=== PATIENT | male | born 1995 | race Caucasian/White ===

== ENCOUNTER 2022-05-12 12:10 | Emergency (ER) | payer OTHER, SELFPAY ==
[2022-05-12 12:27] VITALS: BP 116/71; PULSE 78; RESP 16; TEMP 36.7; O2SAT 100
[2022-05-12] MEDS: methylPREDNISolone SOD SUCC 125 MG VIAL IM (12:45)
--- NOTE | 2022-05-12 13:01 | ED.SKABFB ---
HPI - Skin/Abscess/Foreign Bdy General Chief complaint: Skin/Abscess/Foreign Body Stated complaint: Rash Time Seen by Provider: 05/12/22 13:01 History of Present Illness HPI narrative: Julio Maradiaga is a 26 yo male with no PMH who comes with a rash over his whole body. He states that it started on Saturday have 1 little bite on his right forearm and when he woke up the next day his whole body was covered including his forehead. Currently taking valacyclovir for HSV Related Data Home Medications Medication Instructions Recorded Confirmed valacyclovir 1 gram tablet 1,000 mg PO Q12H 05/12/22 05/12/22 Allergies Allergy/AdvReac Type Severity Reaction Status Date / Time amoxicillin AdvReac Mild Nausea Verified 05/12/22 12:23 clavulanic acid AdvReac Mild Nausea Verified 05/12/22 12:23 Review of Systems Review of Systems: CONSTITUTIONAL: Denies fever, chills, sweats. EYES: Denies visual changes, redness, discharge. ENT: Denies rhinorrhea, congestion, sore throat, otalgia. CARDIOVASCULAR: Denies chest pain, palpitations, edema. RESPIRATORY: Denies dyspnea, wheezing, cough GASTROINTESTINAL: Denies abdominal pain, nausea, vomiting, diarrhea. GENITO rash all over body including face and torso after getting bit by something on Saturday NEUROLOGIC: Denies numbness, or focal weakness. PSYCHIATRIC: Denies anxiety or depression. PMFSH Past Medical History Medical History HSV-2 (herpes simplex virus 2) infection Social History Social History Smoking status: Never smoker Alcohol intake: current Comments At time of signature, I agree with nursing past medical, surgical, social and family history. There is no relevant family history pertinent to the presenting complaint. Exam Narrative: GENERAL: This is a well-nourished, well-developed patient, in mild distress. HEAD: normocephalic, atraumatic. EYES: . Sclera clear/white. Vision is grossly intact. EARS: External ears normal, Hearing grossly intact. NOSE: External nose normal without nasal discharge, nares without redness, no rhinorrhea. THROAT: Mucous membranes moist, NECK: Neck supple, CARDIOVASCULAR: Regular rate and rhythm without murmurs, gallops, or rubs. RESPIRATORY: Clear to auscultation. Breath sounds equal bilaterally. No wheezes, rales, or rhonchi. GASTROINTESTINAL not done, SKIN: warm, intact with red papular rash covers his torso, arms, face, genitals, between fingers NEURO: awake, alert, and oriented to person, place and time. There were no obvious focal neurologic abnormalities. Steady gait EXTREMITIES: Normal range of motion. BACK: Nontender without deformity Course Course Emergency Course: Patient has rash that started last Saturday he is unsure if it is from sleeping in different hotels as he moves back to the area from [place] or if is from weed eating a friend's yard. He is also on ongoing medication for HSV2 Patient given Solu-Medrol 125 here and started on a contact dermatitis protocol of prednisone, Pepcid, Benadryl but also given the name of the medication to buy that pharmacy. if this rash does not improve, related possible to his regular hotel usage, shovalerild treat with permetherin Level of Care: Express Care Visit Vital Signs Vital signs: Vital Signs Temperature 98.0 F 05/12/22 12:27 Pulse Rate 78 05/12/22 12:27 Respiratory Rate 16 05/12/22 12:27 Blood Pressure 116/71 05/12/22 12:27 Pulse Oximetry 100 05/12/22 12:27 Oxygen Delivery Room Air 05/12/22 12:27 Temperature 98.0 F 05/12/22 12:27 Pulse Rate 78 05/12/22 12:27 Respiratory Rate 16 05/12/22 12:27 Blood Pressure 116/71 05/12/22 12:27 Pulse Oximetry 100 05/12/22 12:27 Oxygen Delivery Room Air 05/12/22 12:27 MDM - Skin/Abscess/Foreign Bdy Differential Diagnosis Differential diagnosis: Likely urticaria, cellulitis, eczema, in
== END 2022-05-12 13:30 | disposition home or self-care (01) ==
PROVIDERS: Emergency Provider Nurse Practitioner
DX: L23.7 Allergic contact dermatitis due to plants, except food (principal); B00.9 Herpesviral infection, unspecified
CPT/HCPCS: 96372; 99213; G0463; J2930

== ENCOUNTER 2022-07-08 18:40 | Emergency (ER) | payer BC, SELFPAY ==
--- NOTE | ~2022-07-08 | XR_ITS ---
EXAM: XR pelvis 1-2V DATE: 07/08/2022 19:36 HISTORY: pelvic pain SINCE YESTERDAY, LEFT SIDE PAIN . COMPARISON: 05/10/2016. FINDINGS: Normal mineralization. No fracture or dislocation. No lytic or blastic lesion. Joint space s are maintained. No erosion or periosteal change. Soft tissues within normal limits. IMPRESSION: No acute osseous finding in the pelvis. Reviewed, dictated and finalized at location K. CUTTER
[2022-07-08 18:52] VITALS: BP 116/79; PULSE 128; RESP 20; TEMP 37.1; O2SAT 100
--- NOTE | 2022-07-08 19:13 | ECG_ITS ---
Measurements Intervals [place] Rate: 99 P: 67 NV: 137 QRS: 69 QRSD: 104 T: 73 QT: 348 QTc: 447 Interpretive Statements SINUS RHYTHM INCOMPLETE RIGHT BUNDLE BRANCH BLOCK BORDERLINE ECG NO PREVIOUS ECG AVAILABLE FOR COMPARISON Electronically Signed On 07-09-2022 6:22:11 HAND LEATHER TRIMMER by Minor King D.O.
[2022-07-08] MEDS: KETOROLAC 15 MG/ML VIAL (*BKC) IV PUSH (19:23)
[2022-07-08] MEDS: SODIUM CHLORIDE 0.9% IV 2,000 ML 999 ML IV CONT (19:23)
[2022-07-08] MEDS: HYDROcodone/acetaminophen (*CRX) 5-325 MG TABLET 2 TAB PO (19:24)
[2022-07-08] MEDS: methocarbamoL 750 MG TABLET 1500 MG PO (19:24)
[2022-07-08 19:29] LABS: Basophils Absolute Auto 0.1 K/mm3 (0.0-0.1); Basophils Percent Auto 0.4 % (0.2-1.2); Eosinophils Absolute Auto 0.1 K/mm3 (0-0.3); Eosinophils Percent Auto 1.1 % (0-4.4); Hematocrit 47.8 % (42.0-52.0); Hemoglobin 16.5 g/dL (14.0-18.0); Immature Granulocyte Absolute 0.04 K/mm3 (0.00-0.031); Immature Granulocyte Percent A 0.3 % (0-0.5); Lymphocytes Absolute Auto 2.47 K/mm3 (0.9-3.2); Mean Corpuscular HGB Conc 34.5 g/dl (32-36); Mean Corpuscular Volume 86.9 fl (80-100); Mean Platelet Volume 10.5 fl (7.4-10.4); Monocytes Absolute Auto 0.8 K/mm3 (0.1-0.6); Monocytes Percent Auto 6.1 % (2.6-8.5); Neutrophils Absolute Auto 8.9 K/mm3 (1.3-6.7); Neutrophils Percent Auto 72.1 % (45.5-73.1); Platelet Count Result 290 k/mm3 (150-375); Red Cell Distribution Width 12.6 % (11.5-14.5); White Blood Count 12.3 K/mm3 (4.5-10.0)
[2022-07-08 19:40] LABS: Lactic Acid Reflex 1.1 mmol/L (0.7-2.0)
[2022-07-08 19:41] LABS: Alanine Aminotransferase 24 U/L (6-50); Albumin Level 5.1 g/dL (3.5-5.1); Alkaline Phosphatase 100 U/L (38-126); Anion Gap 14 mmol/L (8-16); Aspartate Amino Transferase 24 U/L (17-59); Bilirubin,Total 0.9 mg/dL (0.2-1.3); Blood Urea Nitrogen 17 mg/dL (9-20); Calcium 9.4 mg/dL (8.4-10.2); Carbon Dioxide 26 mmol/L (22-30); Chloride 99 mmol/L (98-107); Estimated CRCL calculation 104 ml/min; Estimated Glomerular Filt Rate > 60; Glucose 86 mg/dL (65-110); Sodium 139 mmol/L (137-145)
[2022-07-08 19:44] LABS: Glucose Point of Care 83 mg/dl (65-105)
--- NOTE | 2022-07-08 19:45 | PC.NURSE ---
Patient unable to give urine sample at this time, declines straight cath and will attempt again later.
--- NOTE | 2022-07-08 20:13 | ED.GENADULT ---
HPI - General Adult General Chief complaint: Urogenital-Male Stated complaint: pulled groin muscle Time Seen by Provider: 07/08/22 18:56 History of Present Illness HPI narrative: This is a 26-year-old hit male with a history of methamphetamine use presenting ED with groin pain. The patient went on a 10 hour walk yesterday after using some methamphetamines. When he awoke this morning was having severe pain in his groins bilaterally worse on the left than the right. There is association muscle tenderness in the left quad. Patient has a history of rhabdomyolysis after relatively minor workups in the past. patient states he has only urinated once since this happened but it was clear. Related Data Home Medications Medication Instructions Recorded Confirmed valacyclovir 1 gram tablet 1,000 mg PO Q12H 05/12/22 05/12/22 Allergies Allergy/AdvReac Type Severity Reaction Status Date / Time amoxicillin AdvReac Mild Nausea Verified 05/12/22 12:23 clavulanic acid AdvReac Mild Nausea Verified 05/12/22 12:23 Review of Systems Review of Systems: CONSTITUTIONAL: Denies night sweats. EYES: No eye pain ENT: Denies rhinorrhea CARDIOVASCULAR: Denies palpitations RESPIRATORY: Denies hemoptysis GASTROINTESTINAL: Denies hematemesis GENITOURINARY: Denies hematuria. SKIN: Denies rash MUSCULOSKELETAL: Admits mild NEUROLOGIC: Denies weakness. PSYCHIATRIC: Denies delusions PMFSH Past Medical History Medical History HSV-2 (herpes simplex virus 2) infection Social History Social History Smoking status: Never smoker Alcohol intake: current Exam Narrative: APPEARANCE: No apparent distress. Head: atraumatic. EYES: EOMI, NOSE: Atraumatic NECK: Trachea midline RESPIRATORY: No increased rate of breathing CARDIOVASCULAR: RRR, ABDOMINAL: Non-distended MUSCULOSKELETAL: No obvious deformities, patient has tenderness to palpation over the left groin and left femoral muscles. He has significant pain with active and passive range of motion. He has similar symptoms on the right side. He has +2 pulses in the groin, PT and DP distributions. cap refills less than 2 seconds. Testicle exam is normal. NEURO: Alert. Moving 4/4 extremities SKIN:: Warm, dry. Normal color PSYCHIATRIC: Normal affect Course Vital Signs Vital signs: Vital Signs Temperature 98.7 F 07/08/22 18:52 Pulse Rate 128 H 07/08/22 18:52 Respiratory Rate 20 07/08/22 18:52 Blood Pressure 116/79 07/08/22 18:52 Pulse Oximetry 100 07/08/22 18:52 Oxygen Delivery Room Air 07/08/22 18:52 Temperature 98.7 F 07/08/22 18:52 Pulse Rate 128 H 07/08/22 18:52 Respiratory Rate 20 07/08/22 18:52 Blood Pressure 116/79 07/08/22 18:52 Pulse Oximetry 100 07/08/22 18:52 Oxygen Delivery Room Air 07/08/22 18:52 Medical Decision Making MDM Narrative Medical decision making narrative: This is a 26-year-old male presenting to ED with significant musculoskeletal pain after walking 10 miles well on methamphetamines. Concern for rhabdomyolysis versus delayed onset muscle soreness. Patient will be given pain medication in 2 L of fluid. Lab work has been ordered including CPK. Pelvic x-ray has been ordered. EKG interpretation: Rhythm [sinus], Rate 99, [place] -[normal], [place] -[normal], QRS incomplete right bundle branch block, QTC [normal], T waves -[negative for concerning inversions], ST Segments - [Negative for concerning elevations] Final interpretations: [ normal sinus rhythm with incomplete right bundle-branch block patient's lab work was sent for a mildly elevated white blood cell count. CK was not elevated. The rest was of his electrolytes were within normal limits. Pelvic x-ray was normal. Patient was concerned about a small lump in his left groin. Physical exam showed a lymph node that was nontender. Hernia c
[2022-07-08 20:30] LABS: Creatine Kinase 99 U/L (55-170)
[2022-07-08 21:47] VITALS: BP 109/79; PULSE 90; RESP 18; O2SAT 100
== END 2022-07-08 21:49 | disposition home or self-care (01) ==
PROVIDERS: Emergency Provider Emergency Medicine
DX: M79.10 Myalgia, unspecified site (principal); F15.90 Other stimulant use, unspecified, uncomplicated; I45.10 Unspecified right bundle-branch block
CPT/HCPCS: 36415; 72170; 80053; 82550; 82948; 83605; 83735; 84100; 85025; 93005; 96361; 96374; 99284; A9270; J1885; J7030

== ENCOUNTER 2022-07-14 02:11 | Emergency (ER) | payer BC, SELFPAY ==
[2022-07-14] VITALS (28 sets, daily range): BP systolic 103–139; BP diastolic 65–85; PULSE 76–124; RESP 12–36; TEMP 36.4–37.1; O2SAT 90–100
--- NOTE | 2022-07-14 02:26 | ED.GENADULT ---
HPI - General Adult General Chief complaint: Overdose <Luan Espinal MD - Last Filed: 07/20/22 09:33> Stated complaint: SI/OD <Luan Espinal MD - Last Filed: 07/20/22 09:33> Time Seen by Provider: 07/14/22 02:16 <Luan Espinal MD - Last Filed: 07/20/22 09:33> History of Present Illness HPI narrative: 26-year-old male presented to the emergency department after an intentional overdose of fentanyl. Patient states he took approximately 8 capsules of fentanyl and injected an unknown time ago. Patient states he took these with the intent for self-harm and states he was trying to kill himself. Family reports that he has had stays in rehab. Family thought that he had stopped using fentanyl but suspect that he was still using methamphetamine. <Luan Espinal MD - Last Filed: 07/20/22 09:33> Related Data Home medications: Home Medications Medication Instructions Recorded Confirmed bupropion HCl 150 mg tablet,12 hr mg PO 07/14/22 sustained-release nortriptyline 10 mg capsule mg 07/14/22 trazodone 50 mg tablet mg 07/14/22 <Luan Espinal MD - Last Filed: 07/20/22 09:33> Allergies/adverse reactions: Allergies Allergy/AdvReac Type Severity Reaction Status Date / Time amoxicillin AdvReac Mild Nausea Verified 07/14/22 02:25 clavulanic acid AdvReac Mild Nausea Verified 07/14/22 02:25 <Luan Espinal MD - Last Filed: 07/20/22 09:33> [facility] Past Medical History Medical History: Medical History HSV-2 (herpes simplex virus 2) infection <Luan Espinal MD - Last Filed: 07/20/22 09:33> Social History Social History: Social History Smoking status: Never smoker Alcohol intake: current Substance use type: amphetamines, opiates and IV drugs <Luan Espinal MD - Last Filed: 07/20/22 09:33> Course Course Emergency Course: Patient is more alert and appropriate after Narcan. Patient is currently resting comfortably. Patient is medically cleared and is awaiting crisis counselor evaluation. <Luan Espinal MD - Last Filed: 07/20/22 09:33> Patient is more alert and appropriate after Narcan. Patient is currently resting comfortably. Patient is medically cleared and is awaiting crisis counselor evaluation. 07/16/22 0700 care turned myself at shift change. Seen by myself and currently resting in bed. Reviewed chart the patient presented after intentional overdose with fentanyl and in a suicide attempt. It is felt that the patient does require involuntary admission Patient has been accepted at [facility] by Dr. Ponce <Satish Jefferson DO - Last Filed: 07/16/22 12:00> Patient is more alert and appropriate after Narcan. Patient is currently resting comfortably. Patient is medically cleared and is awaiting crisis counselor evaluation. 07/16/22 0700- Care turned over to me from Dr. Narayanan on 07/15/22 at 1900. He states patient is still needing inpatient psychiatric evaluation as he intentionally attempted to OD prior to coming hospital. Dr. Narayanan states he spoke with parents. It is felt that patient is not safe for discharge home on safety contract. Patient had been resting comfortably overnight until around 6 am this morning. Patient would not stay in his room. He was standing in hallway with security cussing and yelling. [facility] came and patient went back into room. Care to be turned over to Dr. Jefferson this morning. 07/16/22 0700 care turned myself at shift change. Seen by myself and currently resting in bed. Reviewed chart the patient presented after intentional overdose with fentanyl and in a suicide attempt. It is felt that the patient does require involuntary admission Patient has been accepted at [facility] by Dr. Ponce <Rosa Thomas MD - Last Filed: 07/16/22 14:56> Reevaluation(s)
--- NOTE | 2022-07-14 02:27 | ECG_ITS ---
Measurements Intervals [place] Rate: 104 P: 49 ND: 141 QRS: 28 QRSD: 116 T: 54 QT: 356 QTc: 469 Interpretive Statements SINUS TACHYCARDIA INCOMPLETE RIGHT BUNDLE BRANCH BLOCK BASELINE ARTIFACT- V5 BORDERLINE ECG COMPARED TO ECG 07/08/2022 19:41:07 SINUS TACHYCARDIA NOW PRESENT Electronically Signed On 07-18-2022 12:04:12 DOCUMENT REVIEWER by Minor King D.O.
[2022-07-14] MEDS: NALOXONE HCL INJ 2 MG/2 ML AMP IV PUSH (02:39)
[2022-07-14] MEDS: ONDANSETRON INJ 4 MG/2 ML VIAL IV PUSH ×3 (02:43→13:22)
[2022-07-14] MEDS: SODIUM CHLORIDE 0.9% IV 1,000 ML 999 ML IV CONT (02:43)
--- NOTE | 2022-07-14 02:44 | PC.NURSE ---
0235 Called poison control and spoke with Rachana, pharmacist in regards to patient. Fax number given to fax over info. Rachana stated to watch for DIRECTOR OF SAFETY AND SECURITY and respiratory depression and to give supportive care. ERP notified.
[2022-07-14 03:17] LABS: Basophils Absolute Auto 0.1 K/mm3 (0.0-0.1); Basophils Percent Auto 0.3 % (0.2-1.2); Eosinophils Absolute Auto 0.1 K/mm3 (0-0.3); Eosinophils Percent Auto 0.2 % (0-4.4); Hematocrit 42.6 % (42.0-52.0); Hemoglobin 14.4 g/dL (14.0-18.0); Immature Granulocyte Absolute 0.12 K/mm3 (0.00-0.031); Immature Granulocyte Percent A 0.5 % (0-0.5); Lymphocytes Absolute Auto 2.49 K/mm3 (0.9-3.2); Lymphocytes Percent Auto 10.6 % (18.3-44.2); Mean Corpuscular HGB Conc 33.8 g/dl (32-36); Mean Corpuscular Hemoglobin 29.9 pg (26-34); Mean Corpuscular Volume 88.6 fl (80-100); Mean Platelet Volume 10.9 fl (7.4-10.4); Monocytes Percent Auto 8.5 % (2.6-8.5); Neutrophils Absolute Auto 18.7 K/mm3 (1.3-6.7); Neutrophils Percent Auto 79.9 % (45.5-73.1); Platelet Count Result 318 k/mm3 (150-375); Red Blood Count 4.81 M/mm3 (4.6-6.20); Red Cell Distribution Width 12.3 % (11.5-14.5); White Blood Count 23.5 K/mm3 (4.5-10.0)
[2022-07-14 03:28] LABS: Acetaminophen < 10 ug/mL (10-30); Alanine Aminotransferase 21 U/L (6-50); Albumin Level 4.9 g/dL (3.5-5.1); Alkaline Phosphatase 72 U/L (38-126); Anion Gap 14 mmol/L (8-16); Aspartate Amino Transferase 21 U/L (17-59); Bilirubin,Total 0.3 mg/dL (0.2-1.3); Blood Urea Nitrogen 16 mg/dL (9-20); Calcium 8.6 mg/dL (8.4-10.2); Carbon Dioxide 28 mmol/L (22-30); Chloride 98 mmol/L (98-107); Estimated Glomerular Filt Rate > 60; Ethanol < 10 mg/dL (<10); Glucose 126 mg/dL (65-110); Magnesium 1.8 mg/dL (1.6-2.3); Potassium 3.4 mmol/L (3.4-5.0); Salicylate < 1.0 mg/dL (2-20); Sodium 140 mmol/L (137-145)
[2022-07-14 03:54] LABS: SARS-CoV-2 RNA PCR Negative
[2022-07-14 04:19] LABS: Appearance Urine Clear (Clear); Bilirubin Urine Negative (Negative); Blood Urine Trace-intact (Negative); Color Urine Yellow (Yellow); Glucose Urine UA 1+ mg/dL (Negative); Ketones Urine Negative (Negative); Leukocyte Esterase Ur Negative LEU/UL (Negative); Nitrate Urine Negative (Negative); Protein Urine Negative (Negative); Specific Grav Ur >= 1.030 (1.001-1.035); Urobilinogen Urine 0.2 mg/dL (<2.0); pH Urine 5.5 (5.0-9.0)
[2022-07-14 04:25] LABS: Add Urine Microscopic? YES; Bacteria Urine Trace /hpf; Mucus Urine Few /lpf; RBC Urine 0-2 /hpf (0-2); Squamous Epithelial Cell Urine Rare /hpf (Few)
[2022-07-14 05:00] LABS: Amphetamine Screen Urine Negative (Negative); Barbiturate Screen Urine Negative (Negative); Benzodiazepines Screen Urine Negative (Negative); Cannabinoid Screen Urine Negative (Negative); Cocaine Screen Urine Negative (Negative); Methadone Screen Urine Negative (Negative); Opiate Screen Urine Negative (Negative); Phencyclidine Screen Urine Negative (Negative)
--- NOTE | 2022-07-14 05:05 | PC.NURSE ---
Masha2 Yenny from poison control calls to get update on patient.
--- NOTE | 2022-07-14 05:09 | PC.NURSE ---
Patient medically cleared by ERP, Crisis contacted.
[2022-07-14] MEDS: buPROPion HCL SR (12 HR) 150 MG TAB PO ×2 (06:17→21:34)
--- NOTE | 2022-07-14 06:34 | PC.NURSE ---
[facility] [place] 4mg zofran
--- NOTE | 2022-07-14 07:05 | PC.NURSE ---
Poison controlled called to verify pt labs and status at this time. Case closed as pt has been medically cleared by ERP dr. Espinal
--- NOTE | 2022-07-14 08:19 | PC.NURSE ---
PT WILL BE VOLUNTARILY PLACED. CRISIS STATES SHOULD HAVE A BED TODAY. FOOD ORDERED FOR PT.
--- NOTE | 2022-07-14 13:13 | PC.NURSE ---
13:08 faxed chart including COVID results to [facility] 13:10 faxed chart including COVID results to Candice Jaramillo
[2022-07-14] MEDS: ACETAMINOPHEN 500 MG TABLET 1000 MG PO (13:22)
--- NOTE | 2022-07-14 14:41 | ECG_ITS ---
Measurements Intervals [place] Rate: 83 P: 62 CT: 138 QRS: 46 QRSD: 117 T: 62 QT: 362 QTc: 426 Interpretive Statements SINUS RHYTHM INCOMPLETE RIGHT BUNDLE BRANCH BLOCK BASELINE ARTIFACT- II, III, AVL, AVF, V2-V4 BORDERLINE ECG COMPARED TO ECG 07/08/2022 19:41:07 NO SIGNIFICANT CHANGES Electronically Signed On 07-14-2022 15:03:20 FUNCTIONAL CONSULTANT by Minor King D.O.
--- NOTE | 2022-07-14 17:05 | PC.NURSE ---
EARLIER IN MY SHIFT PT STARTED TO GET AGITATED WHEN HE FOUND OUT HE WOULD HAVE TO GO TO [facility] OR [facility]. PT REFUSING TO GO TO THESE FACILITIES VOLUNTARILY. PT TOLD HE WILL EITHER GO THERE VOLUNTARILY OR HE WILL BE INVOLUNTARILY COMMITTED. PT TELLS ME THAT HE CANNOT BE HELD AGAINST HIS WILL UNLESS INVOLUNTARILY COMMITTED BY A PSYCHIATRIST. I INFORMED THE PT THAT OUR ED PHYSICIAN COULD AND WAS WILLING TO INVOLUNTARILY ADMIT HIM. PT TELLS ME THAT I WILL HAVE TO CALL THE REJOGGER IN ORDER TO GET HIM TO STAY. SECURITY CALLED TO BEDSIDE. DR. SANTANA MADE AWARE AND FILLS OUT INVOLUNTARY PAPERWORK. PT RESTING ON STRETCHER BUT GETS AGITATED EVERY TIME THE SUBJECT GETS BROUGHT UP. FAMILY AT BEDSIDE.
--- NOTE | 2022-07-14 19:05 | PC.NURSE ---
PT DENIED ADMISSION TO [facility], AND [facility].
--- NOTE | 2022-07-14 19:15 | PC.NURSE ---
CHART FAXED TO [facility]
--- NOTE | 2022-07-14 19:33 | PC.NURSE ---
Report received from MILANA Grossman. Assumed care of patient at this time.
--- NOTE | 2022-07-14 20:33 | PC.NURSE ---
Patient denying and SI/HI at this time. Patient scores low risk on [place], ERP and stitcher feeder notified. Sitter at bedside remains for elopement risk. Patient requesting to speak with ERP. ERP notified.
--- NOTE | 2022-07-14 21:04 | PC.NURSE ---
Patients mother calls to get update. Patient in hallway using phone to call a and speak with his mother.
--- NOTE | 2022-07-14 22:52 | PC.NURSE ---
Crisis called by this RN to inform them that pt has had a change in status at request of EDP. Pt denies SI and HI, and is currently a/o x 4. Crisis reports will send health outreach worker to ED to re-evaluate pt.
--- NOTE | 2022-07-15 | PC.NURSE ---
Spoke albert Llamas from Crisis, who reports that since pt has been seen 2x in last 24 hours, the next time they will reevaluate pt is in the am. Updated pt's primary RN and EDP Bárbara Espinal, and advised to call crisis after 0700 for reassessment.
--- NOTE | 2022-07-15 01:44 | PC.NURSE ---
Patient awake in room and asking for an update. Patient informed that he will be re-evaluated in the AM and then crisis will come. Patient now requesting to speak with ERP. edge runner aware.
--- NOTE | 2022-07-15 08:06 | PC.NURSE ---
Crisis - returned call and stated can only come out at 24 hour she[place], so they will return to reassess at 1730.
--- NOTE | 2022-07-15 09:30 | PC.NURSE ---
Pt attempting to lock bathroom door, pt notified that we can not lock the door to the bathroom. Pt proceeding to binder layer the middle of the [address] cussing and screaming. Pt stating I am being held hostage, I did not bring myself here and check myself in. I am being held against my will.
--- NOTE | 2022-07-15 09:32 | PC.NURSE ---
Justin TANG notified that patient is being non compliant with requests to not scream,and to not cuss due to pediatric patients in that [address]. Pt continues to scream and cuss at everyone including staff/security, threatening lawsuits.
--- NOTE | 2022-07-15 09:39 | PC.NURSE ---
Justin TANG in the department to help assist with returning pt to room and de-escalation.
[2022-07-15 18:50] LABS: Basophils Percent Auto 0.5 % (0.2-1.2); Eosinophils Absolute Auto 0.2 K/mm3 (0-0.3); Eosinophils Percent Auto 2.8 % (0-4.4); Hematocrit 42.5 % (42.0-52.0); Hemoglobin 14.4 g/dL (14.0-18.0); Immature Granulocyte Absolute 0.02 K/mm3 (0.00-0.031); Immature Granulocyte Percent A 0.2 % (0-0.5); Lymphocytes Absolute Auto 2.55 K/mm3 (0.9-3.2); Lymphocytes Percent Auto 31.1 % (18.3-44.2); Mean Corpuscular HGB Conc 33.9 g/dl (32-36); Mean Corpuscular Volume 88.5 fl (80-100); Mean Platelet Volume 10.3 fl (7.4-10.4); Monocytes Absolute Auto 0.6 K/mm3 (0.1-0.6); Monocytes Percent Auto 7.2 % (2.6-8.5); Neutrophils Absolute Auto 4.8 K/mm3 (1.3-6.7); Neutrophils Percent Auto 58.2 % (45.5-73.1); Platelet Count Result 297 k/mm3 (150-375); Red Cell Distribution Width 12.5 % (11.5-14.5); White Blood Count 8.2 K/mm3 (4.5-10.0)
--- NOTE | 2022-07-16 00:07 | PC.NURSE ---
assumed care of pt at 0715. sitter at bedside, pt resting, SI precautions in place. will continue to monitor. no placement available at this time.
[2022-07-16 02:28] VITALS: BP 129/91; PULSE 77; RESP 18; O2SAT 99
--- NOTE | 2022-07-16 04:23 | PC.NURSE ---
Lalitater remains at bedside for elopement precautions. No pending placement at this time.
--- NOTE | 2022-07-16 05:15 | PC.NURSE ---
Pt now states to this RN that he never agreed to stay and he now requests to leave. Recalls being cleared by crisis team last pm, and reports he would like to get his vehicle that is 2 minutes away at his parent's house. States Just because I can't stay there, doesn't mean I can't get my vehicle. Requests his belongings and to be d/c. This RN to notify DYANA Thomas.
--- NOTE | 2022-07-16 06:15 | PC.NURSE ---
Pt standing in hallway, refusing to listen when instructed to return to his room. Pt continually cussing and raising voice. Pt restrained by and Justin TANG notified.
--- NOTE | 2022-07-16 06:20 | PC.NURSE ---
[place] PD at bedside. PD escorting pt back to room and attempting to de-escalate pt.
--- NOTE | 2022-07-16 08:11 | PC.NURSE ---
Pt added to [facility] waiting list.
--- NOTE | 2022-07-16 08:14 | PC.NURSE ---
Pt had a previous hospitalization at [facility] 06/26-06/29
--- NOTE | 2022-07-16 08:31 | PC.NURSE ---
Pt on the phone with [facility] for assessment purposes.
--- NOTE | 2022-07-16 09:16 | PC.NURSE ---
Paperwork faxed to - [place], [place]
--- NOTE | 2022-07-16 09:17 | PC.NURSE ---
[facility] full at this time
--- NOTE | 2022-07-16 10:05 | PC.NURSE ---
paperwork faxed to [facility]
--- NOTE | 2022-07-16 10:05 | PC.NURSE ---
The following facilities are full....... [facility] - covid out break not accepting [place] [place] [facility] [place] [facility]
--- NOTE | 2022-07-16 10:13 | PC.NURSE ---
Pt refused breakfast and refused to talk to his dad on the phone. Pt sleeping at this time, no requests.
--- NOTE | 2022-07-16 11:42 | PC.NURSE ---
[facility] will accept pt. They will call with a bed once they have the current patient discharged, and room cleaned.
[2022-07-16 12:05] VITALS: BP 104/75; PULSE 85; RESP 18; TEMP 36.5; O2SAT 99
--- NOTE | 2022-07-16 14:17 | PC.NURSE ---
Pt accepted at [facility] at [address]
[2022-07-16 14:46] VITALS: BP 110/72; PULSE 70; RESP 18; O2SAT 100
== END 2022-07-16 14:48 ==
PROVIDERS: Emergency Medicine; Emergency Provider General Practice
DX: T40.412A Poisoning by fentanyl or fentanyl analogs, intentional self-harm, initial encounter (principal); Z20.822 Contact with and (suspected) exposure to COVID-19
CPT/HCPCS: 36415; 80053; 80307; 81001; 83735; 84443; 85025; 93005; 96361; 96374; 96375; 96376; 99285; A9270; J2310; J2405; J7030; U0003; U0005